=== PATIENT | male | born 1960 | race Caucasian/White ===

== ENCOUNTER 2018-01-18 19:08 | Emergency (ER) | payer MEDICARE, MEDICAID ==
[~2018-01-18] VITALS: Ht 177.8 cm; Wt 64.7 kg
[~2018-01-18 19:08] MED LIST: CLIN300C85 PO; CYCL-1 PO; GABA-532 PO; HYDR-3972 PO; HYDR-4353 PO; METH-360 PO; NORCO10T PO; OXYC-150 PO; SULF1TAB48 PO; TAMS0.4C32 PO; TRAM50TA2 PO
[2018-01-18] MEDS ORDERED: LORazepam 1 MG tablet PO ONE (20:35)
[2018-01-18] MEDS ORDERED: morphine ER 15mg tablet PO STA (21:24)
[2018-01-18 21:41] VITALS: BP 114/91
== END 2018-01-18 21:44 | disposition home or self-care (01) ==
LOC: ER 19:09
DX: S61.012A Laceration without foreign body of left thumb without damage to nail, initial encounter (principal); G89.29 Other chronic pain; Z88.6 Allergy status to analgesic agent; Z79.899 Other long term (current) drug therapy; W26.8XXA Contact with other sharp object(s), not elsewhere classified, initial encounter; Y93.89 Activity, other specified; Y92.89 Other specified places as the place of occurrence of the external cause; Y99.2 Volunteer activity
CPT/HCPCS: 73140; 99284

== ENCOUNTER 2018-04-25 23:29 | Emergency (ER) | payer MEDICARE, MEDICAID ==
[~2018-04-25] VITALS: Ht 177.8 cm; Wt 72.7 kg
[2018-04-25] MEDS ORDERED: diazepam 5mg tablet PO ONE (23:50)
--- NOTE | 2018-04-25 23:55 | NUR ---
PATIENT TO XRAY VIA WC; PATIENT TRANSFERED SELF TO WHEELCHAIR
--- NOTE | 2018-04-26 00:05 | NUR ---
RETURNED FROM XRAY
[2018-04-26] MEDS ORDERED: CYCL-1 PO (00:14)
[2018-04-26 00:19] VITALS: BP 117/78
[2018-04-26] MEDS ORDERED: HYDROcodone/acetaminophen 5mg/325mg tablet PO ONE (00:20)
--- NOTE | 2018-04-26 00:20 | NUR ---
Stacie VOSS AT BEDSIDE TALKING WITH PT ABOUT DIAGNOSIS AND DC INSTRUCTIONS. PT REQUESTIONS ADT PAIN MEDICATION OR "A SHOT OR SOMETHING". PA REPORTS HE WILL GIVE HIM A DOSE OF NORCO PRIOR TO DC AND HE WILL BE DC'D WITH PERSCRIPTION FOR MUSCLE RELAXER AND REMINDED HIM HE WAS ALSO JUST GIVEN VALIUM. HE REPORTS PT WITH NO NOTICED FRACTURE AND THIS PAIN IS LIKELY FROM MUSCLE SPASM. PT IS COOPERATIVE AND POLITE. HE REPORTS NOT TRANSPORTATION TO HIS HOME AND THAT HE WILL NEED A TAXI RIDE FROM [place]. STABLE VS.
== END 2018-04-26 00:52 | disposition home or self-care (01) ==
LOC: ER 23:30
DX: S39.012A Strain of muscle, fascia and tendon of lower back, initial encounter (principal); G89.29 Other chronic pain; Z86.19 Personal history of other infectious and parasitic diseases; Z98.890 Other specified postprocedural states; Z88.5 Allergy status to narcotic agent; Z88.6 Allergy status to analgesic agent; Z79.2 Long term (current) use of antibiotics; Z79.899 Other long term (current) drug therapy; W18.39XA Other fall on same level, initial encounter; Y93.89 Activity, other specified; Y92.89 Other specified places as the place of occurrence of the external cause; Y99.8 Other external cause status
CPT/HCPCS: 72100; 99284

== ENCOUNTER 2019-12-25 16:32 | Emergency (ER) | payer MEDICARE, MEDICAID ==
[~2019-12-25] VITALS: Ht 172.7 cm; Wt 70.0 kg
[~2019-12-25 16:32] MED LIST changes: +CLIN-97 PO; -CLIN300C85 PO
[2019-12-25 16:34] VITALS: BP 130/87
[2019-12-25] MEDS ORDERED: FLO0.4C PO ×2 (17:30→17:37)
[2019-12-25] MEDS ORDERED: BACL10TA2 PO (17:30)
== END 2019-12-25 18:00 | disposition home or self-care (01) ==
LOC: ER 16:32
DX: S33.5XXA Sprain of ligaments of lumbar spine, initial encounter (principal); M54.5 Low back pain; G89.29 Other chronic pain; Z76.0 Encounter for issue of repeat prescription; Z86.19 Personal history of other infectious and parasitic diseases; Z98.890 Other specified postprocedural states; Z88.6 Allergy status to analgesic agent; Z79.2 Long term (current) use of antibiotics; Z79.899 Other long term (current) drug therapy; X58.XXXA Exposure to other specified factors, initial encounter; Y93.89 Activity, other specified; Y92.89 Other specified places as the place of occurrence of the external cause; Y99.8 Other external cause status
CPT/HCPCS: 99283

== ENCOUNTER 2020-02-08 17:16 | Emergency (ER) | payer MEDICARE, MEDICAID ==
[~2020-02-08] VITALS: Ht 177.8 cm; Wt 76.7 kg
[~2020-02-08 17:16] MED LIST changes: +BACL10TA2 PO; +FLO0.4C PO
[2020-02-08 18:17] VITALS: BP 127/77
[2020-02-08] MEDS ORDERED: FLO0.4C PO (18:30)
== END 2020-02-08 20:04 | disposition home or self-care (01) ==
LOC: ER 17:16
DX: N40.0 Benign prostatic hyperplasia without lower urinary tract symptoms (principal); R33.9 Retention of urine, unspecified; G89.29 Other chronic pain; Z86.19 Personal history of other infectious and parasitic diseases; Z98.890 Other specified postprocedural states; Z88.6 Allergy status to analgesic agent; Z79.2 Long term (current) use of antibiotics; Z79.899 Other long term (current) drug therapy
CPT/HCPCS: 99284

== ENCOUNTER 2021-11-11 16:29 | Emergency (ER) | payer BC, MEDICAID ==
[~2021-11-11] VITALS: Ht 177.8 cm; Wt 75.0 kg
[2021-11-11 16:44] VITALS: BP 98/65
[2021-11-11 19:13] LABS: CLARITY,URINE CLEAR (Clear); COLOR,URINE YELLOW (Yellow); GLUCOSE, URINE NEGATIVE (Neg); KETONES,URINE NEGATIVE (Neg); LEUKOCYTE ESTERASE ,URINE NEGATIVE (Neg); NITRITES, URINE NEGATIVE (Neg); OCCULT BLOOD,URINE SMALL (Neg); PROTEIN,URINE 100 mg/dl (Neg); UROBILINOGEN,URINE 0.2 E.U/dL (0.2-1.0)
[2021-11-11 19:17] LABS: BASOPHILS # (AUTO) 0.1 X10'3 (0-0.2); BASOPHILS % (AUTO) 0.4 % (0-1); EOSINOPHILS # (AUTO) 0.1 X10'3 (0-0.9); EOSINOPHILS % (AUTO) 0.4 % (0-6); HEMATOCRIT 43.1 % (42.0-52.0); HEMOGLOBIN 14.5 g/dl (14.0-17.9); LYMPHOCYTES # (AUTO) 1.2 X10'3 (1.1-4.8); MEAN CORPUSCULAR HEMOGLOBIN 31.3 PG (27.0-31.0); MEAN CORPUSCULAR HGB CONC 33.5 g/dL (33.0-36.5); MEAN CORPUSCULAR VOLUME 93.3 FL (78-98); MEAN PLATELET VOLUME 8.2 FL (7.4-10.4); MONOCYTES # (AUTO) 1.6 X10'3 (0-0.9); MONOCYTES % (AUTO) 10.4 % (2-12); NEUTROPHILS # (AUTO) 12.5 X10'3 (1.8-7.7); NEUTROPHILS % (AUTO) 80.8 % (42-75); PLATELET COUNT 182 X10'3 (140-440); RED BLOOD COUNT 4.62 X10'6 (4.70-6.10); RED CELL DISTRIBUTION WIDTH 13.6 % (11.5-14.5); WHITE BLOOD COUNT 15.5 X10'3 (4.5-11.0)
[2021-11-11 19:17] LABS: UA COLLECTION TYPE NON-SPECIFIED
[2021-11-11 19:19] LABS: BACTERIA,URINE FEW /HPF (Neg); RBC,URINE 0-2 /HPF (0-2); SQUAMOUS EPITHELIAL CELL,UR FEW /LPF (FEW); WBC,URINE 0-4 /HPF (0-4)
[2021-11-11 19:30] LABS: ALANINE AMINOTRANSFERASE 24 U/L (12-78); ALBUMIN 2.8 G/DL (3.4-5.0); ALBUMIN/GLOBULIN RATIO 0.8 (1.1-1.5); ALKALINE PHOSPHATASE 85 IU/L (46-116); ANION GAP 7 (8-16); ASPARTATE AMINO TRANSFERASE 18 U/L (10-37); BILIRUBIN,TOTAL 0.6 MG/DL (0.1-1.0); BLOOD UREA NITROGEN 14 MG/DL (7-18); BUN/CREATININE RATIO 13.6 (5.4-32.0); C-REACTIVE PROTEIN 16.66 MG/DL (0.0-0.5); CALCIUM 8.3 MG/DL (8.5-10.1); CHLORIDE 104 MMOL/L (99-107); CREATININE 1.03 MG/DL (0.60-1.10); GLUCOSE 104 MG/DL (70-104); SODIUM 137 MMOL/L (135-145); TOTAL CARBON DIOXIDE 25.6 MMOL/L (24-32); TOTAL PROTEIN 6.3 G/DL (6.4-8.2); eGFR 74 ML/MIN
[2021-11-11] MEDS ORDERED: iohexol 350MG/ML 100ml bottle IV ONE (19:31)
[2021-11-11] MEDS ORDERED: morphine 4 MG/ML inj SYRINge IV ONE (20:15)
--- NOTE | 2021-11-11 20:41 | NUR ---
Scanner in fast track not working. Patient recieved morphine IV as per eMAR.
[2021-11-11] MEDS ORDERED: LIDOcaine 1% 30ml preserv. free vial SQ STA (20:45)
[2021-11-11] MEDS ORDERED: sulfamethoxazole/trimethoprim DS (800/160mg) tablet PO ONE (21:45)
[2021-11-11] MEDS ORDERED: cephalexin 500mg capsule PO ONE (21:45)
[2021-11-11] MEDS ORDERED: HYDROcodone/acetaminophen 5mg/325mg tablet PO ONE (22:55)
[2021-11-11] MEDS ORDERED: CEPH500C82 PO (22:56)
== END 2021-11-11 23:07 | disposition home or self-care (01) ==
LOC: ER 16:29
DX: N49.2 Inflammatory disorders of scrotum (principal); G89.29 Other chronic pain; M54.9 Dorsalgia, unspecified; Z87.19 Personal history of other diseases of the digestive system; Z98.890 Other specified postprocedural states; Z88.6 Allergy status to analgesic agent; Z88.8 Allergy status to other drugs, medicaments and biological substances; Z79.1 Long term (current) use of non-steroidal anti-inflammatories (NSAID); Z79.2 Long term (current) use of antibiotics; Z79.899 Other long term (current) drug therapy
CPT/HCPCS: 36415; 46050; 74177; 80053; 81001; 83605; 84145; 85025; 86140; 96374; 99285; J2270; J3490; J7030; Q9967; A6449

== ENCOUNTER 2021-11-13 20:29 | Emergency (ER) | payer BC, MEDICAID ==
[~2021-11-13] VITALS: Ht 177.8 cm; Wt 72.7 kg
[~2021-11-13 20:29] MED LIST changes: +CEPH500C82 PO
[2021-11-13 20:35] VITALS: BP 117/76
== END 2021-11-14 01:08 | disposition left against medical advice (07) ==
LOC: ER 20:30
DX: R10.30 Lower abdominal pain, unspecified (principal); Z53.21 Procedure and treatment not carried out due to patient leaving prior to being seen by health care provider

== ENCOUNTER 2021-11-16 09:20 | Emergency (ER) | payer BC, MEDICAID ==
[~2021-11-16] VITALS: Ht 177.8 cm; Wt 74.1 kg
[2021-11-16 09:28] VITALS: BP 113/74
[2021-11-16] MEDS ORDERED: PRED20TA PO (10:17)
[2021-11-16] MEDS ORDERED: SULF1TAB49 PO (10:17)
== END 2021-11-16 10:26 | disposition home or self-care (01) ==
LOC: ER 09:20
DX: R22.9 Localized swelling, mass and lump, unspecified (principal); G89.29 Other chronic pain; M54.50 Low back pain, unspecified; Z88.1 Allergy status to other antibiotic agents; Z88.6 Allergy status to analgesic agent; Z88.5 Allergy status to narcotic agent
CPT/HCPCS: 99283; J7030

== ENCOUNTER 2021-11-25 23:07 | Emergency (ER) | payer BC, MEDICAID ==
[~2021-11-25] VITALS: Ht 177.8 cm; Wt 75.0 kg
[~2021-11-25 23:07] MED LIST changes: -CEPH500C82 PO
[2021-11-25] MEDS ORDERED: normal saline 1000ML IV soln IVB STA (23:19)
[2021-11-25] MEDS ORDERED: triamcinolone acetonide 40mg/ml inj IM ONE (23:20)
[2021-11-25] MEDS ORDERED: methylPREDNISolone sod succ 125mg/2ml vial IV ONE (23:20)
[2021-11-25] MEDS ORDERED: famotidine/PF 10 mg/ml inj IV ONE (23:20)
[2021-11-25] MEDS ORDERED: epiNEPHrine 1 mg/ml inj SQ ONE (23:20)
[2021-11-25] MEDS ORDERED: tranexamic acid 100mg/ml inj. IV ONE (23:25)
[2021-11-25] MEDS ORDERED: LORazepam 2 mg/ml vial IV ONE (23:25)
[2021-11-25] MEDS ORDERED: diphenhydrAMINE 50 mg/ml inj IV ONE (23:25)
[2021-11-25] MEDS ORDERED: midazolam 1 mg/ML 2ml injection IV ONE (23:40)
[2021-11-25 23:43] LABS: BASOPHILS # (AUTO) 0.1 X10'3 (0-0.2); BASOPHILS % (AUTO) 0.8 % (0-1); EOSINOPHILS # (AUTO) 0.1 X10'3 (0-0.9); EOSINOPHILS % (AUTO) 0.8 % (0-6); HEMOGLOBIN 15.7 g/dl (14.0-17.9); LYMPHOCYTES % (AUTO) 31.9 % (21-51); MEAN CORPUSCULAR HEMOGLOBIN 31.5 PG (27.0-31.0); MEAN CORPUSCULAR HGB CONC 34.1 g/dL (33.0-36.5); MEAN CORPUSCULAR VOLUME 92.4 FL (78-98); MEAN PLATELET VOLUME 7.6 FL (7.4-10.4); MONOCYTES # (AUTO) 0.6 X10'3 (0-0.9); MONOCYTES % (AUTO) 6.4 % (2-12); NEUTROPHILS # (AUTO) 5.7 X10'3 (1.8-7.7); NEUTROPHILS % (AUTO) 60.1 % (42-75); PLATELET COUNT 344 X10'3 (140-440); RED BLOOD COUNT 4.98 X10'6 (4.70-6.10); RED CELL DISTRIBUTION WIDTH 13.8 % (11.5-14.5); WHITE BLOOD COUNT 9.5 X10'3 (4.5-11.0)
[2021-11-26] MEDS ORDERED: midazolam 1 mg/ML 2ml injection IV ONE (01:10)
[2021-11-26 01:37] LABS: ALANINE AMINOTRANSFERASE 15 U/L (12-78); ALBUMIN 2.1 G/DL (3.4-5.0); ALBUMIN/GLOBULIN RATIO 0.8 (1.1-1.5); ALKALINE PHOSPHATASE 65 IU/L (46-116); ANION GAP 7 (8-16); ASPARTATE AMINO TRANSFERASE 12 U/L (10-37); BILIRUBIN,TOTAL 0.2 MG/DL (0.1-1.0); BLOOD UREA NITROGEN 13 MG/DL (7-18); BUN/CREATININE RATIO 17.6 (5.4-32.0); CALCIUM 6.3 MG/DL (8.5-10.1); CHLORIDE 116 MMOL/L (99-107); CREATININE 0.74 MG/DL (0.60-1.10); GLUCOSE 97 MG/DL (70-104); SODIUM 147 MMOL/L (135-145); TOTAL PROTEIN 4.6 G/DL (6.4-8.2); eGFR > 90 ML/MIN
[2021-11-26] MEDS ORDERED: POTASSIUM BICARB 20meq eff tab 20 MEQ TABLET.EFF PO ONE (02:15)
[2021-11-26] MEDS ORDERED: EPIN0.3P3 IM (02:58)
[2021-11-26 03:18] VITALS: BP 128/80
== END 2021-11-26 03:20 | disposition home or self-care (01) ==
LOC: ER 23:08
DX: T78.40XA Allergy, unspecified, initial encounter (principal); N49.2 Inflammatory disorders of scrotum; G89.29 Other chronic pain; Z86.19 Personal history of other infectious and parasitic diseases; Z98.890 Other specified postprocedural states; Z88.1 Allergy status to other antibiotic agents; Z88.6 Allergy status to analgesic agent; Z88.8 Allergy status to other drugs, medicaments and biological substances; Z79.2 Long term (current) use of antibiotics; Z79.899 Other long term (current) drug therapy; X58.XXXA Exposure to other specified factors, initial encounter
CPT/HCPCS: 36415; 71045; 80053; 85025; 86885; 86900; 86901; 96361; 96372; 96374; 96375; 96376; 99291; J0171; J1200; J2250; J2930; J3301; J3490; J7030; 99284; A4615

== ENCOUNTER 2022-10-10 01:40 | Emergency (ER) | payer BC, MEDICAID ==
[~2022-10-10] VITALS: Ht 177.8 cm; Wt 75.0 kg
[~2022-10-10 01:40] MED LIST changes: +EPIN0.3P3 IM
[2022-10-10 05:28] VITALS: BP 110/83
[2022-10-10] MEDS ORDERED: bacitracin 15gm ointment TP ONE (05:30)
[2022-10-10] MEDS ORDERED: TETanus/Pertussis (Acell)/Diphther VAC/PF (Tdap-Adult) 0.5ml syringe IMVAC ONE (05:30)
[2022-10-10] MEDS ORDERED: oxyCODONE IR 5mg (immed. release) tablet PO ONE (05:30)
[2022-10-10] MEDS ORDERED: ondansetron 4mg rapidly disintigrating tab PO ONE (05:35)
[2022-10-10] MEDS ORDERED: amox tr/potassium clavulanate 875/125mg TAB PO ONE (05:35)
[2022-10-10] MEDS ORDERED: AMOX-419 PO (05:36)
== END 2022-10-10 05:53 | disposition home or self-care (01) ==
LOC: ER 01:41
DX: S51.832A Puncture wound without foreign body of left forearm, initial encounter (principal); Z88.1 Allergy status to other antibiotic agents; Z88.6 Allergy status to analgesic agent; Z88.2 Allergy status to sulfonamides; W54.0XXA Bitten by dog, initial encounter; Y93.89 Activity, other specified; Y92.89 Other specified places as the place of occurrence of the external cause; Y99.8 Other external cause status
CPT/HCPCS: 73090; 90471; 90715; 99284; A6449

== ENCOUNTER 2023-01-04 01:57 | Emergency (ER) | payer BC, MEDICAID ==
[~2023-01-04] VITALS: Ht 170.2 cm; Wt 68.2 kg
[2023-01-04 02:06] VITALS: PULSE 99; RESP 18; O2SAT 100
--- NOTE | 2023-01-04 02:45 | NUR ---
PT ALLOWED PROVIDER TO PULL FISH HOOK OUT THEN LEFT/ ELOPED AMA SWIFTLY. REFUSED VS. CRN AND PROVIDER AWARE.
== END 2023-01-05 06:31 | disposition left against medical advice (07) ==
LOC: ER 01:57
DX: S60.352A Superficial foreign body of left thumb, initial encounter (principal); Z88.1 Allergy status to other antibiotic agents; Z88.2 Allergy status to sulfonamides; Z88.6 Allergy status to analgesic agent; Z88.5 Allergy status to narcotic agent; Z79.1 Long term (current) use of non-steroidal anti-inflammatories (NSAID); Z79.2 Long term (current) use of antibiotics; X58.XXXA Exposure to other specified factors, initial encounter; Y93.89 Activity, other specified; Y92.89 Other specified places as the place of occurrence of the external cause; Y99.8 Other external cause status
CPT/HCPCS: 99284

== ENCOUNTER 2023-01-28 04:15 | Emergency (ER) | payer BC, MEDICAID ==
[~2023-01-28] VITALS: Ht 177.8 cm; Wt 74.2 kg
[2023-01-28] MEDS ORDERED: DOXYCYCLINE 100MG CAPSULE PO STA (06:27)
[2023-01-28] MEDS ORDERED: HYDROcodone/acetaminophen 5mg/325mg tablet PO ONE (06:30)
[2023-01-28 06:46] LABS: BASOPHILS # (AUTO) 0.1 X10'3 (0-0.2); BASOPHILS % (AUTO) 0.7 % (0-1); EOSINOPHILS # (AUTO) 0.1 X10'3 (0-0.9); EOSINOPHILS % (AUTO) 1.7 % (0-6); HEMOGLOBIN 13.8 g/dl (14.0-17.9); LYMPHOCYTES # (AUTO) 2.1 X10'3 (1.1-4.8); LYMPHOCYTES % (AUTO) 25.8 % (21-51); MEAN CORPUSCULAR HEMOGLOBIN 31.5 PG (27.0-31.0); MEAN CORPUSCULAR HGB CONC 33.6 g/dL (33.0-36.5); MEAN CORPUSCULAR VOLUME 93.7 FL (78-98); MEAN PLATELET VOLUME 8.9 FL (7.4-10.4); MONOCYTES # (AUTO) 0.9 X10'3 (0-0.9); MONOCYTES % (AUTO) 11.8 % (2-12); NEUTROPHILS # (AUTO) 4.8 X10'3 (1.8-7.7); PLATELET COUNT 225 X10'3 (140-440); RED BLOOD COUNT 4.37 X10'6 (4.70-6.10); RED CELL DISTRIBUTION WIDTH 13.7 % (11.5-14.5)
[2023-01-28] MEDS ORDERED: AMOX-580 PO ×2 (06:48)
[2023-01-28 06:54] LABS: ALANINE AMINOTRANSFERASE 23 U/L (12-78); ALBUMIN/GLOBULIN RATIO 1.1 (1.1-1.5); ALKALINE PHOSPHATASE 90 IU/L (46-116); ANION GAP 7 (8-16); ASPARTATE AMINO TRANSFERASE 24 U/L (10-37); BILIRUBIN,TOTAL 0.3 MG/DL (0.1-1.0); BLOOD UREA NITROGEN 15 MG/DL (7-18); BUN/CREATININE RATIO 17.4 (10.0-20.0); CALCIUM 8.4 MG/DL (8.5-10.1); CHLORIDE 108 MMOL/L (99-107); CREATININE 0.86 MG/DL (0.60-1.10); GLUCOSE 105 MG/DL (70-104); POTASSIUM 3.7 MMOL/L (3.5-5.1); SODIUM 141 MMOL/L (135-145); TOTAL CARBON DIOXIDE 25.9 MMOL/L (24-32); TOTAL PROTEIN 5.8 G/DL (6.4-8.2); eCRCL 94 ML/MIN; eGFR > 90 ML/MIN
[2023-01-28] MEDS ORDERED: ondansetron/PF 4mg/2ml inj IV ONE (07:45)
[2023-01-28] MEDS ORDERED: levoFLOXACIN-Levaquin 500mg/D5 100 ML IV ONE (08:00)
[2023-01-28] MEDS ORDERED: LEVO750T68 PO (09:50)
[2023-01-28 10:07] VITALS: BP 111/78; PULSE 60; RESP 18; TEMP 97.8; O2SAT 100
== END 2023-01-28 10:11 | disposition home or self-care (01) ==
LOC: ER 04:15
DX: S60.221A Contusion of right hand, initial encounter (principal); L03.113 Cellulitis of right upper limb; F17.200 Nicotine dependence, unspecified, uncomplicated; Z88.6 Allergy status to analgesic agent; Z88.1 Allergy status to other antibiotic agents; Z88.2 Allergy status to sulfonamides; Z79.1 Long term (current) use of non-steroidal anti-inflammatories (NSAID); Z79.2 Long term (current) use of antibiotics; Z79.899 Other long term (current) drug therapy; X58.XXXA Exposure to other specified factors, initial encounter; Y93.89 Activity, other specified; Y92.89 Other specified places as the place of occurrence of the external cause; Y99.8 Other external cause status
CPT/HCPCS: 36415; 71045; 73120; 80053; 83605; 84145; 85025; 87040; 96365; 96375; 99285; J1956; J2405; J7030

== ENCOUNTER 2023-09-20 23:55 | Emergency (ER) | payer BC, MEDICAID ==
[~2023-09-20] VITALS: Ht 177.8 cm; Wt 72.7 kg
[2023-09-20 23:56] VITALS: BP 102/74; PULSE 74; RESP 18; TEMP 97.7; O2SAT 96
== END 2023-09-21 01:53 | disposition left against medical advice (07) ==
LOC: ER 23:56
DX: T15.82XA Foreign body in other and multiple parts of external eye, left eye, initial encounter (principal); Z53.21 Procedure and treatment not carried out due to patient leaving prior to being seen by health care provider